=== PATIENT | male | born 1990 | race African-American/Black ===

== ENCOUNTER 2023-07-19 10:46 | Inpatient (IN) | payer BC ==
[2023-07-19] MEDS ORDERED: SODIUM CHLORIDE 0.9% 1000 ML INFUS.BAG IV ONE (11:45)
[2023-07-19 12:39] LABS: BASO % 0.5 % (0-2.0); EOS % 0.1 % (0-4.5); HEMATOCRIT 57.9 % (35.4-49); HEMOGLOBIN 17.3 GM/dL (11.7-16.9); LYMPH % 10.7 % (8-40); MCH 23.5 pg (25.7-33.7); MCHC 29.8 g/dl (32.0-35.9); MEAN CELL VOLUME 78.9 fl (80-96); MONO % 4.6 % (3.8-10.2); NEUT % 84.1 % (42.8-82.8); PLATELET COUNT 340 10^3/uL (134-434); RDW 16.2 % (11.9-15.9); WHITE BLOOD COUNT 9.9 K/mm3 (4.0-10.0)
[2023-07-19 12:41] LABS: RBC 7.34 M/mm3 (4.00-5.60)
[2023-07-19] MEDS ORDERED: ONDANSETRON 4 MG/2 ML VIAL IVPUSH ONE (12:45)
[2023-07-19] MEDS ORDERED: FAMOTIDINE 10 MG TABLET PO ONE (12:45)
[2023-07-19] MEDS ORDERED: MAG HYDROX/AL HYDROX/SIMETH 30 ML UNIT-DOSE CUP PO ONE (12:45)
[2023-07-19 12:47] LABS: CHLORIDE 75 mmol/L (98-107); SODIUM 122 mmol/L (136-145)
[2023-07-19 12:49] LABS: CALCIUM 10.3 mg/dL (8.5-10.1)
[2023-07-19 12:51] LABS: BLOOD UREA NITROGEN 29.5 mg/dL (7-18); CO2 32 mmol/L (21-32); LIPASE 59 U/L (73-393)
[2023-07-19 12:53] LABS: SGOT/AST 71 U/L (15-37)
[2023-07-19 12:55] LABS: BILIRUBIN,TOTAL 0.5 mg/dL (0.2-1); TOT PROT 9.2 g/dl (6.4-8.2)
[2023-07-19 12:56] LABS: ALK PHOS 211 U/L (45-117)
[2023-07-19 13:43] LABS: ANION GAP 16 MMOL/L (8-16); GLUCOSE,RANDOM 1745 mg/dL (74-106); POTASSIUM 8.1 mmol/L (3.5-5.1); SGPT/ALT 44 U/L (13-61)
[2023-07-19] MEDS ORDERED: SODIUM CHLORIDE 0.9% 500 ML INFUS.BAG IV ONE (13:49)
[2023-07-19 15:13] LABS: VENOUS BASE EXCESS 0.5 mmol/L (-2-2); VENOUS O2 SATURATION 43.7 % (70-80); VENOUS PCO2 64.1 mmHg (38-52); VENOUS PH 7.282 (7.310-7.410)
[2023-07-19 15:44] LABS: CHLORIDE 86 mmol/L (98-107); POTASSIUM 5.2 mmol/L (3.5-5.1); SODIUM 132 mmol/L (136-145)
[2023-07-19 15:47] LABS: CALCIUM 9.6 mg/dL (8.5-10.1)
[2023-07-19 15:48] LABS: ANION GAP 15 MMOL/L (8-16); BLOOD UREA NITROGEN 27.4 mg/dL (7-18); CO2 31 mmol/L (21-32); LIPASE 94 U/L (73-393)
[2023-07-19 15:51] LABS: SGPT/ALT 38 U/L (13-61)
[2023-07-19 15:52] LABS: CREATININE 2.4 mg/dL (0.55-1.3); SGOT/AST 13 U/L (15-37)
[2023-07-19 15:53] LABS: ALK PHOS 212 U/L (45-117); BILIRUBIN,TOTAL 0.7 mg/dL (0.2-1); TOT PROT 8.6 g/dl (6.4-8.2)
[2023-07-19] MEDS ORDERED: INSULIN REGULAR HUMAN 100 UNITS/ML *VIAL IVPUSH ONE (15:53)
[2023-07-19] MEDS ORDERED: INSULIN REGULAR 100 UNITS in SODIUM CHLORIDE 99 ML IVPB SCH ×2 (16:00→23:00)
[2023-07-19 16:05] LABS: GLUCOSE,RANDOM 1249 mg/dL (74-106)
[2023-07-19 16:05] LABS: LACTIC ACID 3.1 mmol/L (0.4-2.0)
[2023-07-19] MEDS ORDERED: LACTATED RINGERS SOLUTION 1000 ML INFUS.BAG IV ONE (16:20)
[2023-07-19] MEDS ORDERED: INSULIN REGULAR HUMAN 100 UNITS/ML *VIAL ONE (16:26)
[2023-07-19] MEDS ORDERED: SODIUM CHLORIDE 0.9%/KCL 20 MEQ/1,000 ML INFUS.BAG IV SCH (17:00)
[2023-07-19 19:05] LABS: CHLORIDE 102 mmol/L (98-107); POTASSIUM 4.4 mmol/L (3.5-5.1); SODIUM 144 mmol/L (136-145)
[2023-07-19 19:06] LABS: ANION GAP 14 MMOL/L (8-16); BLOOD UREA NITROGEN 24.6 mg/dL (7-18); CALCIUM 9.6 mg/dL (8.5-10.1); CO2 28 mmol/L (21-32)
[2023-07-19 19:12] LABS: CHLORIDE 101 mmol/L (98-107); POTASSIUM 4.2 mmol/L (3.5-5.1); SODIUM 143 mmol/L (136-145)
[2023-07-19 19:14] LABS: ANION GAP 13 MMOL/L (8-16); CALCIUM 9.5 mg/dL (8.5-10.1); CO2 29 mmol/L (21-32)
[2023-07-19 19:15] LABS: BLOOD UREA NITROGEN 23.5 mg/dL (7-18)
[2023-07-19 19:25] LABS: GLUCOSE,RANDOM 741 mg/dL (74-106); GLUCOSE,RANDOM 746 mg/dL (74-106)
[2023-07-19] MEDS ORDERED: SODIUM CHLORIDE 0.45%/POT 20 MEQ/1,000 ML INFUS.BAG IV SCH ×2 (19:45→23:15)
[2023-07-19] MEDS: CHLORHEXIDINE GLUCONATE 4% CLEANSER FOR DECOLONIZATION TP SCH (21:16)
[2023-07-19] MEDS: HEPARIN NA (PORCINE) 5,000 UNITS/ML 1ML VIAL SQ SCH (21:16)
[2023-07-19] MEDS: MUPIROCIN 2% TOPICAL OINTMENT FOR DECOLONIZATION NS SCH (21:16)
[2023-07-19 23:08] LABS: POTASSIUM 4.3 mmol/L (3.5-5.1)
[2023-07-19 23:09] LABS: CALCIUM 9.3 mg/dL (8.5-10.1)
[2023-07-19 23:11] LABS: BLOOD UREA NITROGEN 18.5 mg/dL (7-18)
[2023-07-19 23:13] LABS: CREATININE 1.7 mg/dL (0.55-1.3)
[2023-07-19] MEDS ORDERED: DEXTROSE 5%-0.45% SALINE 990 ML with POTASSIUM CHLORIDE 20 MEQ IV SCH ×2 (23:15→23:45)
[2023-07-19 23:32] LABS: EPI CELLS 12 /uL (0-25.1); HYALINE CASTS 6 /uL (0-3.1); URINE APPEARANCE CLEAR; URINE BACTERIA 26 /uL (0-1359); URINE BILIRUBIN NEGATIVE (NEGATIVE); URINE COLOR YELLOW; URINE GLUCOSE (UA) 3+ (NEGATIVE); URINE KETONE 2+ (NEGATIVE); URINE LEUK ESTERASE NEGATIVE (NEGATIVE); URINE NITRITE NEGATIVE (NEGATIVE); URINE PROTEIN 1+ (NEGATIVE); URINE RBC 5 /uL (0-23.9); URINE UROBILINOGEN 0.2 mg/dL (0.2-1.0); URINE WBC 14 /uL (0-25.8)
[2023-07-20 03:02] LABS: POTASSIUM 4.1 mmol/L (3.5-5.1)
[2023-07-20 03:04] LABS: BLOOD UREA NITROGEN 17.5 mg/dL (7-18); CALCIUM 8.8 mg/dL (8.5-10.1); MAGNESIUM 3.2 mg/dL (1.8-2.4)
[2023-07-20 03:06] LABS: PHOSPHOROUS 2.6 mg/dL (2.5-4.9)
[2023-07-20 03:08] LABS: CREATININE 1.7 mg/dL (0.55-1.3)
[2023-07-20] MEDS ORDERED: INSULIN (LEVEMIR) 100 UNITS/ML UNITS SQ ONE ×2 (06:00→11:10)
[2023-07-20] MEDS ORDERED: DEXTROSE 5%-0.45% SALINE 990 ML with POTASSIUM CHLORIDE 20 MEQ IV SCH (06:15)
[2023-07-20] MEDS ORDERED: INSULIN (NOVOLOG) ASPART 100 UNITS/ML 10ML VIAL ONE (06:19)
[2023-07-20] MEDS: HEPARIN NA (PORCINE) 5,000 UNITS/ML 1ML VIAL SQ SCH ×3 (06:21→21:42)
[2023-07-20] MEDS ORDERED: INSULIN SLIDING SCALE (NOVOLOG) 1 VIAL SQ SCH (07:00)
[2023-07-20 07:22] LABS: POTASSIUM 3.7 mmol/L (3.5-5.1)
[2023-07-20 07:23] LABS: BLOOD UREA NITROGEN 18.4 mg/dL (7-18); CALCIUM 8.5 mg/dL (8.5-10.1)
[2023-07-20 07:27] LABS: CREATININE 1.8 mg/dL (0.55-1.3)
[2023-07-20] MEDS: SODIUM CHLORIDE 0.45% 1,000 ML IV SCH (09:13)
[2023-07-20] MEDS: MUPIROCIN 2% TOPICAL OINTMENT FOR DECOLONIZATION NS SCH ×2 (09:20→21:42)
[2023-07-20 09:21] LABS: BASO % 0.7 % (0-2.0); EOS % 1.7 % (0-4.5); HEMATOCRIT 42.1 % (35.4-49); HEMOGLOBIN 14.7 GM/dL (11.7-16.9); LYMPH % 19.8 % (8-40); MCHC 34.9 g/dl (32.0-35.9); MEAN PLT VOLUME 8.9 fl (7.5-11.1); MONO % 7.8 % (3.8-10.2); PLATELET COUNT 211 10^3/uL (134-434); RBC 6.14 M/mm3 (4.00-5.60); RDW 15.9 % (11.9-15.9); WHITE BLOOD COUNT 10.3 K/mm3 (4.0-10.0)
[2023-07-20 09:29] LABS: MEAN CELL VOLUME 68.7 fl (80-96)
[2023-07-20] MEDS: INSULIN SLIDING SCALE (NOVOLOG) 1 VIAL SQ SCH ×3 (11:22→21:43)
[2023-07-20] MEDS ORDERED: POLYETHYLENE GLYCOL (HEALTHYLAX) 3350 17 GM PACKET PO ONE (15:30)
[2023-07-20] MEDS: CHLORHEXIDINE GLUCONATE 4% CLEANSER FOR DECOLONIZATION TP SCH (21:42)
[2023-07-20] MEDS: INSULIN (LEVEMIR) 100 UNITS/ML UNITS SQ SCH (21:42)
[2023-07-20] MEDS ORDERED: INSULIN (LEVEMIR) 100 UNITS/ML UNITS SQ SCH (22:00)
[2023-07-21] MEDS: SODIUM CHLORIDE 0.45% 1,000 ML IV SCH ×3 (02:09→22:48)
[2023-07-21] MEDS: INSULIN SLIDING SCALE (NOVOLOG) 1 VIAL SQ SCH ×4 (06:20→22:10)
[2023-07-21] MEDS: HEPARIN NA (PORCINE) 5,000 UNITS/ML 1ML VIAL SQ SCH ×3 (06:20→22:09)
[2023-07-21] MEDS: INSULIN (LEVEMIR) 100 UNITS/ML UNITS SQ SCH ×2 (06:20→22:09)
[2023-07-21] MEDS: MUPIROCIN 2% TOPICAL OINTMENT FOR DECOLONIZATION NS SCH ×2 (10:00→22:09)
[2023-07-21] MEDS: CHLORHEXIDINE GLUCONATE 4% CLEANSER FOR DECOLONIZATION TP SCH (22:09)
[2023-07-22] MEDS: HEPARIN NA (PORCINE) 5,000 UNITS/ML 1ML VIAL SQ SCH ×3 (06:43→21:35)
[2023-07-22] MEDS: INSULIN SLIDING SCALE (NOVOLOG) 1 VIAL SQ SCH ×4 (06:43→21:32)
[2023-07-22] MEDS: INSULIN (LEVEMIR) 100 UNITS/ML UNITS SQ SCH ×2 (06:43→21:31)
[2023-07-22 07:31] LABS: HEMATOCRIT 35.8 % (35.4-49); HEMOGLOBIN 11.7 GM/dL (11.7-16.9); MCH 23.4 pg (25.7-33.7); MCHC 32.6 g/dl (32.0-35.9); MEAN CELL VOLUME 71.8 fl (80-96); MEAN PLT VOLUME 8.7 fl (7.5-11.1); PLATELET COUNT 127 10^3/uL (134-434); RBC 4.99 M/mm3 (4.00-5.60); RDW 15.7 % (11.9-15.9); WHITE BLOOD COUNT 4.2 K/mm3 (4.0-10.0)
[2023-07-22 07:46] LABS: POTASSIUM 4.1 mmol/L (3.5-5.1)
[2023-07-22 07:48] LABS: CALCIUM 8.1 mg/dL (8.5-10.1)
[2023-07-22 07:49] LABS: BLOOD UREA NITROGEN 13.4 mg/dL (7-18)
[2023-07-22 07:52] LABS: CREATININE 0.9 mg/dL (0.55-1.3)
[2023-07-22 07:54] LABS: BILIRUBIN,TOTAL 0.5 mg/dL (0.2-1)
[2023-07-22 08:00] LABS: ALBUMIN 2.6 g/dl (3.4-5.0); TOT PROT 5.6 g/dl (6.4-8.2)
[2023-07-22] MEDS: MUPIROCIN 2% TOPICAL OINTMENT FOR DECOLONIZATION NS SCH ×2 (11:43→21:35)
[2023-07-22 17:06] VITALS: BMI 32.9
[2023-07-22] MEDS: SODIUM CHLORIDE 0.45% 1,000 ML IV SCH (19:17)
[2023-07-22] MEDS: CHLORHEXIDINE GLUCONATE 4% CLEANSER FOR DECOLONIZATION TP SCH (21:33)
[2023-07-23] MEDS: HEPARIN NA (PORCINE) 5,000 UNITS/ML 1ML VIAL SQ SCH ×2 (06:18→16:15)
[2023-07-23] MEDS: INSULIN (LEVEMIR) 100 UNITS/ML UNITS SQ SCH (06:18)
[2023-07-23] MEDS: INSULIN SLIDING SCALE (NOVOLOG) 1 VIAL SQ SCH ×2 (06:18→11:53)
[2023-07-23 06:20] VITALS: PULSE 68; TEMP 98.1
[2023-07-23] MEDS: MUPIROCIN 2% TOPICAL OINTMENT FOR DECOLONIZATION NS SCH (09:44)
[2023-07-23 12:17] VITALS: BP 112/78; RESP 17
== END 2023-07-23 16:24 | disposition home or self-care (01) | DRG 420 ==
LOC: JER 10:46 → JERBED 16:00 → JICU 18:08
PROVIDERS: ADMIT Internal Medicine; ATTEND Family Medicine
DX: E11.00 Type 2 diabetes mellitus with hyperosmolarity without nonketotic hyperglycemic-hyperosmolar coma (NKHHC) (principal); N17.9 Acute kidney failure, unspecified; E87.0 Hyperosmolality and hypernatremia; E86.0 Dehydration; E11.10 Type 2 diabetes mellitus with ketoacidosis without coma
CPT/HCPCS: 0241U-QW; 36415; 71046-TC-FY; 80048; 80053; 81003; 82010; 82803; 82962; 83036; 83605; 83690; 83735; 83930; 84100; 84484; 85025; 85027; 93005; 93010; 99285-25; J1644; J3480